=== PATIENT | female | born 1985 | race Caucasian/White ===

== ENCOUNTER → 2022-08-18 15:21 | Outpatient (CLI) | payer OTHER, SELFPAY ==
--- NOTE | ~2022-08-18 | MR_ITS ---
MRI of the right hip Clinical history: Pain Technique: Coronal T1-weighted, T2-weighted, and proton-density fat-sat images, and axial T1-weighted and proton-density fat-sat images were acquired through the pelvis. Coronal T2-weighted images and c oronal, axial, and sagittal proton-density fat-sat images were acquired through the right hip. Findings: There is no fracture, avascular necrosis, transient osteoporosis of either hip. There is a 1.8 x 1.0 x 1.1 cm intramedullary lesion at the left greater trochanter, T2 hyperintense, T1 hypointe nse, with suspected chondroid matrix and a somewhat lobulated margins, suggestive a small enchondroma . No other bone marrow signal abnormality seen in the proximal femora or visualized pelvic bones. Bilateral hip joints are preserved. No significant degenerative or erosive change. Bilateral SI joint s are intact. No joint effusion identified. No right acetabular labral tear identified. Visualized musculature about the pelvis and right hip is unremarkable. No muscle atrophy or edema carlos ntified. Visualized tendons are intact. No mass lesion or fluid collection seen. No bursitis identifi ed. IMPRESSION: No significant abnormality identified. Probable small enchondroma at the left greater trochanteric region, of doubtful clinical significance . Reviewed, dictated and finalized at [facility]. IMPRESSION: No significant abnormality identified. Probable small enchondroma at the left greater trochanteric region, of doubtful clinical significance.
== END ==
PROVIDERS: Visit Provider Orthopaedic Surgery
DX: M25.551 Pain in right hip (principal)
CPT/HCPCS: 73721